=== PATIENT | male | born 1970 ===

== ENCOUNTER 2016-03-15 18:46 | Emergency (ER) | payer BC ==
[~2016-03-15] VITALS: Ht 167.6 cm; Wt 79.9 kg
[2016-03-15 19:18] VITALS: BP 129/85; PULSE 70; RESP 16; TEMP 99.8; O2SAT 99
[2016-03-15 19:57] LABS: BLOOD, URINE TRACE (NEG); GLUCOSE,URINE NEG (NEG); KETONE, URINE NEG (NEG); NITRITE,URINE NEG (NEG); PH, URINE 5.5 (5.0-8.5)
[2016-03-15 20:09] LABS: METHOD OF COLLECTION CLEAN CATCH
[2016-03-15 20:09] LABS: CHLORIDE 102 MEQ/L (98-107); POTASSIUM 4.1 MEQ/L (3.5-5.1); SODIUM (NA) 140 MEQ/L (136-145)
[2016-03-15 20:10] LABS: URINE COLOR AMBER (YELLW/STRAW)
[2016-03-15 20:11] LABS: MUCUS URINE MOD /lpf (OCC)
[2016-03-15 20:12] LABS: COMMENT (UR) CULT NOT INDICATED; CULTURE IF INDICATED CULT NOT INDICATED; SQUAMOUS EPITHELIAL CELL URINE 0-5 /hpf (0-5); WBC, URINE 0-2 /hpf (0-5)
[2016-03-15 20:13] LABS: ANION GAP 8 MEQ/L (5-15); BICARBONATE 29.8 MEQ/L (21.0-32.0); BLOOD UREA NITROGEN 14 MG/DL (7-18)
[2016-03-15 20:16] LABS: ALT (GPT) 35 U/L (12-78); AST (GOT) 16 U/L (15-37); GLOMERULAR FILTRATION RATE 89 ML/MIN (>89)
[2016-03-15 20:17] LABS: TOTAL BILIRUBIN ADULT 0.5 MG/DL (0.2-1.0)
[2016-03-15 20:18] LABS: ALKALINE PHOSPHATASE 79 U/L (45-117)
[2016-03-15 20:27] LABS: AUTOMATED NEUTROPHIL # 7.8 TH/MM3 (1.8-7.7); BASOPHIL # 0.1 TH/MM3 (0-0.2); BASOPHIL % 0.5 % (0.0-2.0); EOSINOPHIL # 0.4 TH/MM3 (0-0.4); EOSINOPHIL % 3.3 % (0.0-4.0); HEMATOCRIT 41.9 % (39.0-51.0); LYMPH % 15.4 % (9.0-44.0); LYMPHOCYTE # 1.8 TH/MM3 (1.0-4.8); MEAN CELL VOLUME 81.7 FL (80.0-100.0); MEAN CORPUSCULAR HEMOGLOBIN 27.5 PG (27.0-34.0); MEAN CORPUSCULAR HGB CONC 33.6 % (32.0-36.0); MONO % 12.7 % (0.0-8.0); NEUT % 68.1 % (16.0-70.0); PLATELET COUNT 224 TH/MM3 (150-450); RED BLOOD COUNT 5.13 MIL/MM3 (4.50-5.90); RED CELL DISTRIBUTION WIDTH 12.8 % (11.6-17.2); WHITE BLOOD COUNT 11.6 TH/MM3 (4.0-11.0)
[2016-03-15 20:30] LABS: HEMO FLAGS DIFF FINAL
[2016-03-15 21:45] VITALS: RESP 18; O2SAT 99
[2016-03-15] MEDS ORDERED: BENA40TA PO (22:00)
[2016-03-15] MEDS ORDERED: AMLO10TA2 PO (22:00)
[2016-03-15] MEDS ORDERED: CITA20TA4 PO (22:00)
[2016-03-15 23:00] VITALS: BP 138/72; PULSE 74; RESP 18; O2SAT 96
--- NOTE | 2016-03-15 23:08 | PD ---
HPI Chief Complaint: Abdominal Pain Time Seen by Provider: 22:50 Travel History International Travel<30 days: No Contact w/Intl Traveler<30days: No Traveled to known affect area: No History of Present Illness HPI 45 years old male complains of low abdominal pain, abdominal bloating, nausea and low-grade fever. Patient states that the symptoms started a month ago. Patient states that the abdominal pain is constant cramping pain with bloating sensation diffuse over the abdomen especially lower abdomen. Patient denies any dysuria or frequency. Patient states that he has aching low back pain with radiation to the legs for the past week. Patient states that he has low-grade fever 99-101 last week. Patient denies any earache sore throat coughing congestion. Patient states that he has nausea but no vomiting or diarrhea. Patient denies any blood or mucus in the stool. Patient has history of hypertension and depression. Patient denies any GI issues in the past. Patient denies any focal weakness and numbness of lower extremity. Patient denies any history IV drug abuse. PFSH Past Medical History Anxiety: Yes Cardiovascular Problems: Yes (HTN) Diminished Hearing: No GERD: Yes Hypertension: Yes Immunizations Current: Yes Tetanus Vaccination: < 5 Years Influenza Vaccination: No Social History Alcohol Use: No Tobacco Use: No Substance Use: No Allergies-Medications (Allergen,Severity, Reaction): Coded Allergies: Iodine (Verified Allergy, Severe, Anaphylaxis, 03/15/16) Shellfish (Verified Allergy, Severe, Anaphylaxis, 03/15/16) Reported Meds & Prescriptions Reported Meds & Active Scripts Active Reported Benazepril (Benazepril HCl) 40 Mg Tab 80 Mg PO DAILY Citalopram (Citalopram Hydrobromide) 20 Mg Tab 20 Mg PO DAILY Amlodipine (Amlodipine Besylate) 10 Mg Tab 10 Mg PO DAILY Review of Systems General / Constitutional: No: Fever Eyes: No: Visual changes HENT: No: Headaches Cardiovascular: No: Chest Pain or Discomfort Respiratory: No: Shortness of Breath Gastrointestinal: Positive: Nausea, Abdominal Pain Genitourinary: No: Dysuria Musculoskeletal: No: Pain Skin: No Rash Neurologic: No: Weakness Psychiatric: No: Depression Endocrine: No: Polydipsia Hematologic/Lymphatic: No: Easy Bruising Physical Exam Narrative GENERAL: Well-nourished, well-developed patient. SKIN: Warm and dry. HEAD: Normocephalic. EYES: No scleral icterus. No injection or drainage. NECK: Supple, trachea midline. No JVD or lymphadenopathy. CARDIOVASCULAR: Regular rate and rhythm without murmurs, gallops, or rubs. RESPIRATORY: Breath sounds equal bilaterally. No accessory muscle use. GASTROINTESTINAL: Abdomen soft, nondistended. Patient has mild diffuse tenderness over the abdomen. No rebound tenderness. No mass. MUSCULOSKELETAL: No cyanosis, or edema. BACK: Mild tenderness on palpation lumbar area, without obvious deformity. No CVA tenderness. Neurologic exam normal. Data Data Last Documented VS Vital Signs Date Time Temp Pulse Resp B/P Pulse Ox O2 Delivery O2 Flow Rate FiO2 03/16/16 00:07 18 03/16/16 00:07 73 126/71 98 Room Air 03/15/16 19:18 99.8 Orders Complete Blood Count With Diff (03/15/16 19:40) Comprehensive Metabolic Panel (03/15/16 19:40) Urinalysis - C+S If Indicated (03/15/16 19:40) Iv Access Insert/Monitor (03/15/16 19:40) Oxygen Administration (03/15/16 19:40) Oximetry (03/15/16 19:40) Lipase (03/15/16 19:40) Ct Abd/Pel W/O Iv Contrast (03/15/16 22:56) Labs Laboratory Tests Test 03/15/16 03/15/16 19:30 19:47 Urine Collection Type CLEAN CATCH Urine Color MARLY Urine Turbidity CLEAR Urine pH 5.5 Urine Specific [place] 1.028 Urine Protein NEG mg/dL Urine Glucose (UA) NEG mg/dL Urine Ketones NEG mg/dL Urine Occult Blood TRACE Urine Nitrite NEG Urine Bilirubin NEG Urine Leukocyte Esterase NEG Urine WBC 0-2 /hpf Urine Squamous Epithelial 0-5 /hpf Cells Urine Amorphous Sediment SMALL Urine Mucus MOD /lpf Microscopic Urinalysis Comment CULT NOT INDICATED White Blood Count 11.6 TH/MM3 Red Blood Count 5.13 MIL/MM3 Hemoglobin 14.1 GM/DL Hematocrit 41.9 % Mean Corpuscular Volume 81.7 FL Mean Corpuscular Hemoglobin 27.5 PG Mean Corpuscular Hemoglobin 33.6 % Concent Red Cell Distribution Width 12.8 % Platelet Count 224 TH/MM3 Mean Platelet Volume 7.9 FL Neutrophils (%) (Auto) 68.1 % Lymphocytes (%) (Auto) 15.4 % Monocytes (%) (Auto) 12.7 % Eosinophils (%) (Auto) 3.3 % Basophils (%) (Auto) 0.5 % Neutrophils # (Auto) 7.8 TH/MM3 Lymphocytes # (Auto) 1.8 TH/MM3 Monocytes # (Auto) 1.5 TH/MM3 Eosinophils # (Auto) 0.4 TH/MM3 Basophils # (Auto) 0.1 TH/MM3 CBC Comment DIFF FINAL Differential Comment Sodium Level 140 MEQ/L Potassium Level 4.1 MEQ/L Chloride Level 102 MEQ/L Carbon Dioxide Level 29.8 MEQ/L Anion Gap 8 MEQ/L Blood Urea Nitrogen 14 MG/DL Creatinine 0.92 MG/DL Estimat Glomerular Filtration 89 ML/MIN Rate Random Glucose 90 MG/DL Calcium Level 8.9 MG/DL Total Bilirubin 0.5 MG/DL Aspartate Amino Transf 16 U/L (AST/SGOT) Alanine Aminotransferase 35 U/L (ALT/SGPT) Alkaline Phosphatase 79 U/L Total Protein 7.9 GM/DL Albumin 3.8 GM/DL Lipase 182 U/L [facility] Medical Decision Making Medical Screen Exam Complete: Yes Emergency Medical Condition: Yes Interpretation(s) 12:[address] scan abdomen pelvis shows mesenteric adenopathy. CBC WBC 11.6. 12.7 monocytes. CMP within normal limit. UA is negative. Differential Diagnosis Differential diagnosis including gastritis, PUD, pancreatitis, cholecystitis, colitis, UTI, pyelonephritis, nephrolithiasis, lumbar strain, HNP, discitis, spinal abscess. Narrative Course 45 years old male with abdominal pain, low back pain, low-grade fever, abdominal cramping and bloating. Symptoms started a month ago. Diagnosis Primary Impression: Mesenteric lymphadenopathy Patient Instructions: General Instructions Additional Instructions: Take medication as needed. Follow-up with personal physician for referral to obstetrician and gynaecologist oncologist for follow-up. Return if worse. Med/Other Pt SpecificInfo: Prescription(s) given Scripts Ondansetron Odt (Zofran Odt)4 Mg Tab4 Mg SL Q6HR PRN (Nausea/Vomiting) #12 TAB Ref 0 Prov:Noman Nuñez MD 03/16/16 Pantoprazole (Protonix)20 Mg Tab20 Mg PO DAILY #30 TAB Ref 0 Prov:Noman Nuñez MD 03/16/16 Dicyclomine (Bentyl)20 Mg Tab20 Mg PO TID #30 TAB Ref 0 Prov:Noman Nuñez MD 03/16/16 Disposition: 01 DISCHARGE HOME Condition: Stable Noman Nuñez MD Mar 15, 2016 23:08
--- NOTE | 2016-03-15 23:58 | RADHPO ---
EXAM DATE/TIME: 03/15/2016 23:22 [facility] COMPARISON: No previous studies available for comparison. INDICATIONS : Bilateral lower abdominal pain. Fever. Nausea. ORAL CONTRAST: No oral contrast ingested. RADIATION DOSE: 10.80 CTDIvol (mGy) MEDICAL HISTORY : Hypertension. SURGICAL HISTORY : None. ENCOUNTER: Initial ACUITY: 1 month PAIN SCALE: 8/10 LOCATION: Bilateral lower quadrant TECHNIQUE: Volumetric scanning of the abdomen and pelvis was performed. Using automated exposure control and ad justment of the mA and/or kV according to patient size, radiation dose was kept as low as reasonably achievable to obtain optimal diagnostic quality images. FINDINGS: LOWER LUNGS: The visualized lower lungs are clear. LIVER: Homogeneous density without lesion. There is no dilation of the biliary tree. No calcified gallston es. SPLEEN: Normal size without lesion. PANCREAS: Within normal limits. KIDNEYS: Normal in size and shape. There is no mass, stone, or hydronephrosis. ADRENAL GLANDS: Within normal limits. VASCULAR: There is no aortic aneurysm. BOWEL/MESENTERY: The stomach, small bowel, and colon demonstrate no acute abnormality. There is no free intraperitone al air or fluid. There is mild induration and moderate prominence of lymph nodes in the mesenteric ro ot. ABDOMINAL WALL: Within normal limits. RETROPERITONEUM: There is no lymphadenopathy. BLADDER: No wall thickening or mass. REPRODUCTIVE: Within normal limits. INGUINAL: There is no lymphadenopathy or hernia. MUSCULOSKELETAL: Within normal limits for patient age. CONCLUSION: Mesenteric root adenopathy which is nonspecific. The appearance is worrisome for malignancy, however could also conceivably be present on the basis of infectious/inflammatory process as well. Jacky Wynne MD on March 15, 2016 at 23:51 Board Certified Radiologist. This report was verified electronically.
[2016-03-16 00:07] VITALS: BP 126/71; PULSE 73; RESP 18; O2SAT 98
[2016-03-16] MEDS ORDERED: PANT20 PO (00:17)
[2016-03-16] MEDS ORDERED: ZOFR4TAB3 SL (00:17)
[2016-03-16] MEDS ORDERED: BENT20TA PO (00:17)
== END 2016-03-16 01:00 | disposition home or self-care (01) ==
LOC: PHED 18:46
DX: R59.1 Generalized enlarged lymph nodes (principal); R11.0 Nausea; R50.9 Fever, unspecified; I10 Essential (primary) hypertension; K21.9 Gastro-esophageal reflux disease without esophagitis; M54.5 Low back pain
CPT/HCPCS: 74176; 80053; 81001; 83690; 85025